=== PATIENT | female | born 1990 | race Caucasian/White ===

== ENCOUNTER → 2016-12-29 | Outpatient (CLI) | payer MEDICAID ==
[~2016-12-29] MED LIST: AUGMENTIN 875-1 EACH PO; BENADRYL ALLERG25 M3 PO; DULOXETINE HYDR30 MG PO; ELIQUIS5 MG PO; ETODOLAC400 MG PO; FLEXERIL10 MG PO; HYDROCODONE 7.51 TAB PO; HYDROCODONE1 TABLE1 PO; INDOMETHACIN50 MG PO; KEFLEX 500MG.500 MG PO; KENALOG0.5% TP; LEVOFLOXACIN 7750 M1 PO; MOTRIN 400MG.400 MG PO; MULTIVITAMIN1 TA2 PO; PERCOCET 5/3251 EACH PO; PREDNISONE 20MG20 MG PO; ZANTAC 150150 MG PO; ZOFRAN4 MG PO; [UNRECOGNIZED DRUG - OTHER] PO
[2016-12-29 09:28] LABS: FASTING URINE GLUCOSE NEGATIVE
[2016-12-29 10:55] LABS: 1 HR URINE GLUCOSE NEGATIVE mg/ml
== END ==
LOC: LAB 09:00
PROVIDERS: Nurse Practitioner Obstetrics & Gynecology
DX: Z34.80 Encounter for supervision of other normal pregnancy, unspecified trimester (principal)